=== PATIENT | male | born 1975 | race Two or more races ===

== ENCOUNTER 2024-02-09 10:38 | Emergency (ER) | payer OTHER ==
[~2024-02-09] VITALS: Ht 182.9 cm; Wt 108.9 kg
[2024-02-09] MEDS ORDERED: ADDERALL 10 MG10 MG (10:53)
[2024-02-09] MEDS ORDERED: NASAL MIST126 ML (10:53)
[2024-02-09] MEDS ORDERED: VIAGRA100 MG (10:53)
== END 2024-02-09 11:36 | disposition home or self-care (01) ==
LOC: ER 10:38
DX: S40.212A Abrasion of left shoulder, initial encounter (principal); W17.89XA Other fall from one level to another, initial encounter; Y93.89 Activity, other specified; Y92.832 Beach as the place of occurrence of the external cause; S80.212A Abrasion, left knee, initial encounter; S80.211A Abrasion, right knee, initial encounter